=== PATIENT | female | born 1965 | race Caucasian/White ===

== ENCOUNTER 2020-05-07 12:46 | Outpatient (CLI) | payer BC, SELFPAY ==
--- NOTE | 2020-05-07 12:53 | XR_ITS ---
WS: [id number] LEFT ANKLE: 3 VIEW(S) TECHNIQUE: AP, oblique(s) and lateral. HISTORY: LEFT ANKLE PAIN COMPARISON: None available. Fixation hardware in the distal tibia and fibula. Plate and screw fixation. No lucency around the scr ews. Mild narrowing of the tibiotalar joint space. Hypertrophic bone formation with narrowing of the dista l tibiofibular joint space. No acute fracture. Moderate size calcaneal spur. No soft tissue abnormality. XR/XR ankle LT min 3V* [id number] IMPRESSION: 1. Bimalleolar ORIF. No acute fractures. 2. Mild degenerative changes at the distal tibiotalar and tibiofibular joint s paces.
== END 2020-05-07 12:47 | disposition home or self-care (01) ==
LOC: RADWPI 12:51
PROVIDERS: Family Provider Family Medicine; PCP Nurse Practitioner Family; Visit Provider Nurse Practitioner Family
DX: M25.572 Pain in left ankle and joints of left foot (principal)
CPT/HCPCS: 73610